=== PATIENT | female | born 1980 | race Two or more races ===

== ENCOUNTER 2023-08-17 13:40 | Emergency (ER) | payer MEDICAID, SELFPAY ==
[2023-08-17 14:53] VITALS: BP 127/80; PULSE 65; RESP 18; TEMP 36.8; O2SAT 100; BMI 39.0
--- NOTE | 2023-08-17 15:02 | ED_ITS ---
HPI - Dental/Oral General Chief complaint: Dental/Oral Stated complaint: Low Grade Fever Time Seen by Provider: 08/17/23 15:15 Source: patient and RN notes reviewed Mode of arrival: ambulatory Limitations: no limitations History of Present Illness HPI Narrative: This is a 42-year-old female presenting to the emergency department with complaints of right upper tooth pain x3 days. She states that she chipped her r ight upper to several weeks ago. Patient has on ongoing low-grade fevers. She has been taking Tylenol and Motrin for symptoms which has provided her with some relief. She states that the pain radiates into the right side of her face. Also endorsing mild headache. She recently will to the area does not have a dentist. No other complaints or concerns at this time. MD Complaint: tooth pain Location: Tooth # (1) Onset (ago): day(s) Duration: constant Severity: moderate Relieving factors: NSAIDs Exacerbating factors: chewing, cold, heat and drinking fluids Context: history of dental caries Treatment prior to arrival: none Related Data Previous Rx's Medication Instructions Recorded acetaminophen 500 mg tablet 500 mg PO Q6H PRN pain #30 tabs 08/17/23 (Tylenol Extra Strength) amoxicillin 875 mg-potassium 1 tab PO BID 7 days #14 tabs 08/17/23 clavulanate 125 mg tablet ibuprofen 600 mg tablet 600 mg PO Q6H PRN fever or pain 08/17/23 #30 tabs Allergies Allergy/AdvReac Type Severity Reaction Status Date / Time No Known Allergies Allergy Verified 08/17/23 14:52 Review of Systems Review of Systems: Yes all other systems are reviewed and are negative [facility] Past Medical History Attestation statement: The following information was validated with the patient. Social History Social History Advance Directives: No Advance Directives Information Provided: No Physical Exam Vital Signs: Vital Signs: Last Vital Signs Temp 98.3 F 08/17/23 14:53 Pulse 65 08/17/23 14:53 Resp 18 08/17/23 14:53 BP 127/80 08/17/23 14:53 Pulse Ox 100 08/17/23 14:53 O2 Del Method Room Air 08/17/23 14:53 BMI result Body Mass Index 39.0 Const: Other: General: Awake, alert, and oriented X3. No acute distress. HEENT: Normal inspection, see HEENT below CVS: Normal heart rate and rhythm. Pulses normal. Respiratory: No respiratory distress Skin: Warm, dry, no rashes noted to exposed skin. Normal skin color. Normal skin turgor. Extremities: Normal to inspection Neuro: Oriented X 3. No motor deficit. No sensory deficit. HEENT: Other: Tooth 1 with slight chip upon the external surface, mildly tender to palpation. No gingival erythema or obvious dental abscess. Moist mucous membranes. No trismus, drooling, or dysphonia. Head: Yes normal to inspection, Yes normocephalic and Yes atraumatic Ears: TM's normal bilaterally General nose exam: Normal external nose present and Normal nares present Face and sinus: Yes normal facial exam, Yes sinuses nontender and Yes face symmetric Mouth: Normal oral and palatal mucosa present, lip normal and tongue normal Teeth and gingiva: dentition normal, gingiva normal and other Medical Decision Making Medical Decision Making MDM Narrative: This is a 42-year-old female presenting to the emergency department for evaluation of right upper dental pain x3 days. On arrival, patient nontoxic appearing, vital signs within normal limits. Tooth #1 with mild tenderness palpation, no abscess. Patient recently moved to the area, does not have a dentist at this time. Will treat for dental infection with Augmentin, given prescription for ibuprofen and Tylenol. Given return precautions. Patient nontoxic appearing, vital signs within normal limits. Patient understands agrees with plan. Patient stable for discharge. Differential Diagnosis Differential Diagnoses: The differential diagnosis associated with the presentation includes Dental infection, abscess, dental decay, dental carries, dental fracture Discharge Plan Discharge Clinical Impression: Toothache Patient Disposition: Home, Self-Care Instructions: Toothache (ED) Additional Instructions: You likely have a dental infection. Please take prescribed antibiotic as directed. Finish the entire course even if you are feeling better. Ibuprofen and Tylenol can help with your symptoms. Please follow-up with the dentist. Call today to make an appointment. If any new or worsening symptoms occur including but not limited to worsening pain, fevers not responding to Tylenol or Motrin, please return for re- evaluation. Prescriptions: New amoxicillin-pot clavulanate 875-125 mg tablet 1 tab PO BID 7 Days Qty: 14 0RF ibuprofen 600 mg tablet 600 mg PO Q6H PRN (Reason: fever or pain) Qty: 30 0RF acetaminophen [Tylenol Extra Strength] 500 mg tablet 500 mg PO Q6H PRN (Reason: pain) Qty: 30 0RF Interventions: ED Discharge Assessment Last Done: 08/17/23 15:07
== END 2023-08-17 15:38 | disposition home or self-care (01) ==
PROVIDERS: Emergency Provider Emergency Medicine Emergency Medical Services
DX: K08.89 Other specified disorders of teeth and supporting structures (principal)
CPT/HCPCS: 99282; 99283